=== PATIENT | male | born 1975 | race Caucasian/White ===

== ENCOUNTER 2017-03-29 20:21 | Inpatient (IN) | payer BC ==
[~2017-03-29] VITALS: Ht 170.2 cm; Wt 78.0 kg
[2017-03-29 23:18] LABS: BASOPHIL COUNT 0.1 K/uL (0-0.1); EOSINOPHIL (%) 4.3 % (0-5); EOSINOPHIL COUNT 0.3 K/uL (0-0.3); HEMATOCRIT 45.5 % (38.0-50.0); IMMATURE GRANULOCYTE (%) 0.3 % (0.0-0.7); INSTRUMENT ABS NEUTROPHIL CT 2.8 K/uL; LYMPHOCYTE COUNT 2.5 K/uL (1.0-2.8); MCH 29.2 PG (29.0-34.0); MCHC 34.1 G/DL (30.0-36.0); MCV 85.8 FL (86-99); MEAN PLAT.VOLUME 9.8 uM^3 (9.0-12.4); MONOCYTE (%) 9.5 % (3-12); MONOCYTE COUNT 0.6 K/uL (0-0.8); NEUTROPHIL COUNT 2.8 K/uL (1.8-6.4); PLATELET COUNT 308 K/uL (156-360); RBC DIS.WIDTH-CV 12.9 % (11.8-14.6); WHITE BLOOD COUNT 6.2 K/uL (4.1-10.2)
[2017-03-29 23:31] LABS: CHLORIDE 108 mEq/L (99-109); POTASSIUM 3.6 mEq/L (3.7-5.4); SODIUM 141 mEq/L (136-147)
[2017-03-29 23:32] LABS: GLUCOSE 106 mg/dL (70-99)
[2017-03-29 23:34] LABS: ANION GAP 10 MEQ/L (2-14)
[2017-03-29 23:36] LABS: GFR ESTIMATE (CALCULATED) > 59 mL/min/; SERUM ETHYL ALCOHOL < 10 mg/dL
[2017-03-29 23:37] LABS: UREA NITROGEN (BUN) 13 mg/dL (9-23)
[2017-03-29 23:53] LABS: AMPHETAMINE NEGATIVE (500 ng/mL); BARBITURATES NEGATIVE (200 ng/mL); BENZODIAZEPINES NEGATIVE (150 ng/mL); COCAINE NEGATIVE (150 ng/mL); INTERNAL CONTROLS VALID? YES; METHADONE NEGATIVE (200 ng/mL); METHAMPHETAMINE NEGATIVE (500 ng/mL); OPIATES (MORPHINE) NEGATIVE (100 ng/mL); OXYCODONE NEGATIVE (100 ng/mL); PHENCYCLIDINE NEGATIVE (25 ng/mL); PROPOXYPHENE NEGATIVE (300 ng/mL); THC CANNABINOIDS NEGATIVE (50 ng/mL); TRICYCLIC ANTIDEPRESSANTS NEGATIVE (300 ng/mL)
[2017-03-30] MEDS ORDERED: ONCE DAILY1 EACH PO (00:53)
[2017-03-30 01:40] VITALS: BP 106/73
[2017-03-30 07:49] VITALS: BP 106/56
[2017-03-30 15:25] VITALS: BP 113/63
[2017-03-31 08:31] VITALS: BP 110/62
[2017-03-31 16:07] VITALS: BP 134/73
[2017-04-01 07:26] VITALS: BP 113/61
[2017-04-01] MEDS ORDERED: SERTRALINE HCL50 MG PO (09:50)
== END 2017-04-01 12:39 | disposition home or self-care (01) | DRG 885 ==
LOC: EME 20:21 → 1WEST 03-30 00:44 → EDOF 03-30 00:44 → ENRESERV 03-30 01:12 → 1WEST 03-30 01:28
PROVIDERS: Emergency Medicine
DX: F33.9 Major depressive disorder, recurrent, unspecified (principal); R45.851 Suicidal ideations; G47.10 Hypersomnia, unspecified; F41.9 Anxiety disorder, unspecified
CPT/HCPCS: 80048; 85025; 90839; 97150 GO; 97165 GO; 99281; 99284; G0480

== ENCOUNTER 2018-01-15 13:08 | Emergency (ER) | payer BC ==
[~2018-01-15] VITALS: Ht 170.2 cm; Wt 84.5 kg
[~2018-01-15 13:08] MED LIST: ONCE DAILY1 EACH PO; SERTRALINE HCL50 MG PO
[2018-01-15 13:38] LABS: HEMATOCRIT 46.7 % (38.0-50.0); HEMOGLOBIN 16.2 G/DL (12.5-16.6); MCH 30.3 PG (29.0-34.0); MCHC 34.7 G/DL (30.0-36.0); MCV 87.5 FL (86-99); PLATELET COUNT 293 K/uL (156-360); RBC DIS.WIDTH-CV 12.8 % (11.8-14.6); RBC DIS.WIDTH-SD 40.7 % (39-53); RED BLOOD COUNT 5.34 M/uL (4.00-5.50); WHITE BLOOD COUNT 6.6 K/uL (4.1-10.2)
[2018-01-15 13:47] LABS: CHLORIDE 106 mEq/L (99-109); POTASSIUM 3.9 mEq/L (3.7-5.4); SODIUM 140 mEq/L (136-147)
[2018-01-15 13:48] LABS: GLUCOSE 94 mg/dL (70-99)
[2018-01-15 13:52] LABS: CREATININE 1.1 mg/dL (0.6-1.3); GFR ESTIMATE (CALCULATED) > 59 mL/min/ (58.99-99999)
[2018-01-15 13:53] LABS: UREA NITROGEN (BUN) 10 mg/dL (9-23)
[2018-01-15 14:48] LABS: TROP-I INTERPRETATION NEGATIVE; TROPONIN-I < 0.01 ng/mL (0.0-0.30)
[2018-01-15] MEDS ORDERED: ANTIVERT25 MG PO (14:48)
[2018-01-15] MEDS ORDERED: VIIBRYD10 MG PO (17:20)
[2018-01-15] MEDS ORDERED: KEPPRA500 MG PO (20:46)
[2018-01-15] MEDS ORDERED: DECADRON4 M1 PO (20:46)
[2018-01-16 00:57] VITALS: BP 106/75
== END 2018-01-16 00:59 | disposition left against medical advice (07) ==
LOC: EME 13:08
DX: C71.9 Malignant neoplasm of brain, unspecified (principal); Z88.0 Allergy status to penicillin
CPT/HCPCS: 70450; 70553; 71046; 71260; 74177; 80048; 84484; 85027; 93005; 99281; 99285; J1100; J1953; J7030; J7050